=== PATIENT | female | born 1960 | race Caucasian/White ===

== ENCOUNTER 2019-05-17 10:40 | Outpatient (CLI) | payer OTHER | END 2019-05-17 10:41 | disposition home or self-care (01) | PROVIDERS: ATTEND Nurse Practitioner Family | DX: R13.12 Dysphagia, oropharyngeal phase (principal) | CPT/HCPCS: 74230 ==

== ENCOUNTER 2020-05-25 07:12 | Outpatient (CLI) | payer OTHER ==
[2020-05-25 17:29] LABS: #Eosinphils 0.2 10x3/uL (0.0-0.5); #Monocytes 0.5 10x3/uL (0.0-1.1); #Neutrophils 3.7 10x3/uL (1.5-8.4); %Basophils 0.4 % (0.0-2.0); %Eosinophils 3.2 % (0.0-6.0); %Lymphocytes 35.2 % (18.0-47.0); %Monocytes 6.9 % (0.0-10.0); %Neutrophils 54.2 % (40.0-75.0); Hemoglobin 14.5 g/dL (12.0-16.0); Mean Corpuscular HGB CONC 33.9 G/DL (32.0-36.0); Mean Corpuscular Volume 88.6 fl (80.0-100.0); Mean Platelet Volume 11.1 fl (7.4-10.4); Platelet Count 240 10x3/uL (130-400); RBC Distribution Width 12.5 % (11.5-14.5); Red Blood Cell (RBC) Count 4.83 10x6/uL (3.90-5.20); White Blood Cell (WBC) Count 6.8 10x3/uL (4.5-11.0)
[2020-05-25 17:54] LABS: Anion Gap 15 mmol/L (10-20); BUN (Urea Nitrogen) 17 mg/dL (9.8-20.1); Calc. Creatinine Clearance 0 mL/min (70-130); Calcium 9.8 mg/dL (7.8-10.44); Carbon Dioxide 25 mmol/L (22-29); Chloride 103 mmol/L (98-107); Glucose 109 mg/dL (70-105); Potassium 3.8 mmol/L (3.5-5.1); Sodium 139 mmol/L (136-145)
[2020-05-26 03:28] LABS: SARS-CoV-2 MS2 Positive; SARS-CoV-2 N Gene Negative; SARS-CoV-2 S Gene Negative; SARS-CoV-2 by NAA Not Detected (NotDetected); SARS-CoV-2 orf1ab Negative
--- NOTE | 2020-05-28 16:13 | EKG ---
Test Reason : Blood Pressure : / mmHG Vent. Rate : 084 BPM Atrial Rate : 084 BPM P-R Int : 176 ms QRS Dur : 078 ms QT Int : 362 ms P-R-T Axes : 067 047 078 degrees QTc Int : 427 ms Normal sinus rhythm possible inferior [place] unknown age Nonspecific ST-T changes No previous ECGs available Confirmed by DR. Dawna SANCHEZ ([id number]) on 05/28/2020 4:12:47 PM Referred By: IERO Confirmed By:DR. Dawna SANCHEZ
== END 2020-05-25 07:13 | disposition home or self-care (01) ==
LOC: LABBT 07:12
PROVIDERS: ATTEND Orthopaedic Surgery
DX: Z01.818 Encounter for other preprocedural examination (principal); M75.102 Unspecified rotator cuff tear or rupture of left shoulder, not specified as traumatic; Z20.828 Contact with and (suspected) exposure to other viral communicable diseases
CPT/HCPCS: 80048; 85025; 87635; 93005; 93010; U0003

== ENCOUNTER 2020-05-30 07:44 | Day surgery (SDC) | payer OTHER ==
[2020-05-29 14:32] VITALS: BMI 31.0
[2020-05-30] MEDS ORDERED: Fentanyl 100 MCG/2 ML VIAL ONE ×2 (08:12→12:25)
[2020-05-30] MEDS ORDERED: Midazolam HCl 2 mg/2 ml Vial ONE (08:12)
[2020-05-30] MEDS ORDERED: Lidocaine 1% (PF) 30 ML VIAL ONE (08:12)
[2020-05-30] MEDS ORDERED: Scopolamine 1.5 mg/72 hour Patch ONE (09:26)
[2020-05-30] MEDS ORDERED: Rocuronium Bromide 10 MG/ML (10ML VIAL) ONE (09:42)
[2020-05-30] MEDS ORDERED: Metoclopramide HCl 10 MG/2 ML VIAL ONE (09:42)
[2020-05-30] MEDS ORDERED: Ropivacaine 0.5% HCl/PF (150 MG/30 ML VIAL) ONE (09:42)
[2020-05-30] MEDS ORDERED: Calcium Chloride 1 GM/10 ML Abboject SYRINGE ONE (09:42)
[2020-05-30] MEDS ORDERED: Ondansetron PF 4 MG/2 ML Vial ONE (09:42)
[2020-05-30] MEDS ORDERED: Dexamethasone 20 MG/5 ML VIAL ONE (09:42)
[2020-05-30] MEDS ORDERED: Glycopyrrolate 0.2 MG/ML 5 ML SYRINGE ONE (09:42)
[2020-05-30] MEDS ORDERED: PHENYLEPHRINE-NS 100 MCG/ML 10 ML SYRINGE ONE (09:42)
[2020-05-30] MEDS ORDERED: Ropivacaine 0.2% HCl/PF (40 MG/20 ML VIAL) ONE (09:42)
[2020-05-30] MEDS ORDERED: PROPOFOL 200 MG/20 ML VIAL ONE (09:42)
[2020-05-30] MEDS ORDERED: Lidocaine 1% PF 5 ML VIAL ONE (09:42)
[2020-05-30] MEDS ORDERED: Fentanyl 100 MCG/2 ML VIAL IV PRN (09:50)
[2020-05-30] MEDS ORDERED: traMADol HCl 50 MG TAB PO PRN ×2 (10:00)
[2020-05-30] MEDS ORDERED: Ondansetron PF 4 MG/2 ML Vial IVP PRN (10:00)
[2020-05-30] MEDS ORDERED: Promethazine HCl 25 MG/ML VIAL IM PRN (10:00)
[2020-05-30] MEDS ORDERED: HYDROcodone/Acetaminophen 10/325 mg Tablet PO PRN ×2 (10:00)
[2020-05-30] MEDS ORDERED: Ropivacaine 0.2% 550 ML 550 ML NERVE BLCK SCH (10:00)
[2020-05-30] MEDS ORDERED: Zolpidem Tartrate 5 MG TAB PO PRN (10:00)
[2020-05-30] MEDS ORDERED: Lidocaine 1% w/Epinephrine 1:100K 20 ML VIAL ONE (10:26)
[2020-05-30] MEDS ORDERED: Ketorolac Tromethamine 30 MG/ML VIAL IVP SCH (12:00)
[2020-05-30] MEDS ORDERED: Promethazine HCl 25 MG/ML VIAL ONE (12:24)
--- NOTE | 2020-05-31 09:41 | OP ---
DATE OF PROCEDURE: 05/30/2020 PREOPERATIVE DIAGNOSES: 1. Left shoulder rotator cuff tear. 2. Biceps tendon tearing and instability. POSTOPERATIVE DIAGNOSES: 1. Left shoulder rotator cuff tear. 2. Biceps tendon tearing and instability. PROCEDURES PERFORMED: 1. Left shoulder arthroscopy with arthroscopic rotator cuff repair. 2. Left open biceps tenodesis. ONLINE PROJECT MANAGER: Blane Marsh PA-C. The assistant press operator offset surgeon was present throughout the open biceps tenodesis portion of the procedure to include the approach, excision of the biceps tendon in the bicipital groove, and closure of all shoulder wounds. ESTIMATED BLOOD LOSS: Minimal. COMPLICATIONS: None. ANESTHESIA: She did have a general anesthetic as well as a preoperative block. DISPOSITION: She did go to recovery room in stable condition. INDICATIONS: Aline is a 59-year-old patient of mine, who has had significant problems with her left shoulder including pain and weakness and has failed nonoperative treatment including injection. At this time, an MRI was done and found to have a significant rotator cuff tear, and at this time, she wished to have this repaired. DESCRIPTION OF PROCEDURE: After all appropriate consent forms were explained and signed, she was taken back to the operating room and at this time was given general anesthetic. Once the level of anesthesia was appropriate, the patient was rolled into the right lateral decubitus position and all bony prominences were well padded. An axillary roll was placed underneath the right axilla and a camara bag was inflated to hold in this position. The arm was then suspended with 15 pounds in standard arthroscopic fashion. The left shoulder and upper extremity were then prepped and draped in standard surgical fashion. Bony anatomical landmarks were drawn out and the subacromial space was infiltrated with lidocaine with epinephrine. At this time, a posterior portal was established. Scope was placed into the shoulder joint. An anterior working portal was then made using a needle localization technique. Diagnostic arthroscopy commenced in the glenohumeral joint. Ball and socket cartilage appeared to be normal. Axillary pouch had no loose bodies. The subscapularis showed fraying on the top portion only of the subscapularis to include tearing of the sling of the bicipital groove. This was debrided with a shaver. The patient had a [place] complex. The superior labrum was found to have a degenerative tear and this also was debrided with a shaver. Then evaluated the rotator cuff, was found to have full-thickness tear of supraspinatus going back into infraspinatus. Again, the bicipital sling was torn. Portion of the supraspinatus and biceps were felt to be completely unstable. At this time, an 18-gauge needle was used to place a stitch through this. The biceps was cut off the superior labrum. At this time, we then removed the scope and replaced into the subacromial space. Lateral working portal was made. At this time, a scant amount of bursa was removed from off the underlying rotator cuff. The patient had a large complex rotator cuff tear noted to include the entirety of the supraspinatus going back into most of the infraspinatus and this tear was not directly off bone, but in fact there was approximately 7 to 8 mm of tissue still attached. Unfortunately, ligament posterior into the infraspinatus, there was a little island of poor quality tissue in between the bony attachment and the tendon itself and this was not being repairable and was debrided along with the remaining portion of the tendon to freshen up the edges to help with this to heal. All soft tissue was removed off the bony insertion up into the articular edge. Once this was done, a PassPort cannula was placed laterally and green cannula placed anteriorly. At this time, through a separate stab incision, 2 triple-loaded titanium anchors were placed into the bone and it was felt that since we lost a fair amount of rotator cuff tendon tissue we were not be able to do a double row rather single repair back to the anatomic insertion of the articular edge. Again, I do not have enough tissue to go around the lateral aspect of the tuberosity. At this time, a [id number] stitch was placed posteriorly to prevent any further extension of the tear using the Scorpion. This was then tied. Once this was done, we then passed our stitches from front to back using the Scorpion device in a simple fashion, getting good control of the tendon. These were then tied from back to front, giving us a nice repair. Once this was done, we then removed the scope and drained the shoulder. We then performed our open biceps tenodesis. A skin incision was made with 10 blade down through skin. Bovie was used to clear any brisk venous bleeding. Bovie was then used to sharply enter through the deltoid fascia and finger dissection was used to split the deltoid fibers in line. We got down to the bicipital groove. This was opened up and the tendon was brought out into the wound. The tendon was then sutured and the intra-articular portion was cut off and removed off the field. Once all brisk bleeding had been coagulated in the bicipital groove, we then placed our pin, reamed over top with a 7 mm reamer to a depth of 25 and placed a 7 x 23 [employer] Bio-Tenodesis screw in standard fashion. This gave us a nice amount of fit and we then tied our sutures over top, so the screw could not back out. Once this was done, we then went ahead and thoroughly irrigated our wound, closed our deltoid fascia with a running Vicryl, 2-0 Vicryl, and nylon sutures to close the remaining incisions. At this time, bulky sterile dressing was applied. The patient was awakened. She was taken to recovery room in stable condition. All counts were correct at the end of the case and she did receive preoperative IV antibiotics. Job ID: [id number]
== END 2020-05-30 15:55 | disposition home or self-care (01) ==
LOC: SDC 07:44
PROVIDERS: ATTEND Orthopaedic Surgery
PROC: 0LS40ZZ Reposition Left Upper Arm Tendon, Open Approach (ICD-10-PCS; principal; 2020-05-30)
PROC: 0RHK04Z Insertion of Internal Fixation Device into Left Shoulder Joint, Open Approach (ICD-10-PCS; principal; 2020-05-30)
PROC: 0LQ24ZZ Repair Left Shoulder Tendon, Percutaneous Endoscopic Approach (ICD-10-PCS; principal; 2020-05-30)
PROC: 3E0T3BZ Introduction of Anesthetic Agent into Peripheral Nerves and Plexi, Percutaneous Approach (ICD-10-PCS; principal; 2020-05-30)
DX: M75.122 Complete rotator cuff tear or rupture of left shoulder, not specified as traumatic (principal); S46.212A Strain of muscle, fascia and tendon of other parts of biceps, left arm, initial encounter; S43.432A Superior glenoid labrum lesion of left shoulder, initial encounter; M75.42 Impingement syndrome of left shoulder; E78.5 Hyperlipidemia, unspecified; K21.9 Gastro-esophageal reflux disease without esophagitis; J45.909 Unspecified asthma, uncomplicated; Z79.891 Long term (current) use of opiate analgesic; Z79.899 Other long term (current) drug therapy; Z88.1 Allergy status to other antibiotic agents; Z98.1 Arthrodesis status; G89.18 Other acute postprocedural pain
CPT/HCPCS: A4306; C1713; J0690; J1100; J2001; J2250; J2405; J2550; J2704; J2765; J2795; J3010